=== PATIENT | male | born 1960 ===

== ENCOUNTER 2017-10-30 10:35 | Emergency (ER) | payer OTHER ==
[2017-10-30] MEDS ORDERED: EPINEPHrine HCL (1:10,000) 1 MG/10 ML SYRINGE IV ONE (10:36)
[2017-10-30] MEDS ORDERED: SODIUM BICARBONATE 8.4% INJ 50 MEQ/50 ML SYR IV ONE (10:36)
--- NOTE | 2017-10-30 11:07 | PD ---
HPI Chief Complaint: Code Blue Time Seen by Provider: 10:50 Travel History International Travel<30 days: No (Unknown) Contact w/Intl Traveler<30days: No (Unknown) Traveled to known affect area: No (Unknown) History of Present Illness HPI This is a 57-year-old male with a history of peripheral vascular disease, status post left lower extremity amputation within the last 2 weeks, who presents via EMS in cardiac arrest. According to the paramedics they got a call that the patient was unresponsive. When they arrived, they found the patient in agonal respirations. ACLS protocol was initiated. The patient had received 6 doses of intraosseous epinephrine and 2 A of sodium bicarb. The patient was in asystole and PEA. When patient arrived. He had no pulses. He was being bagged through the ET tube that was placed prior to arrival. The patient had PEA on the monitor. The patient had a large amount of frothy dark liquid in the ET tube. The patient was reintubated using the CMAC. [facility] Social History Tobacco Use: No (Unknown) Review of Systems ROS Limitations: Intubated (In cardiac arrest. Unable to obtain any review of systems) Physical Exam Narrative GENERAL: Well-developed well-nourished male who is being ventilated through the ET tube. Patient had CPR in progress. Patient was pale and cool to the touch. SKIN: Focused skin assessment warm/dry. HEAD: Atraumatic. Normocephalic. EYES: Pupils are fixed and dilated at 3 mm.. No scleral icterus. No injection or drainage. ENT: Frothy secretions in the oropharynx and ET tube. NECK: Trachea midline. No palpable carotid pulse. CARDIOVASCULAR: PEA noted on the monitor. No palpable pulse appreciated. RESPIRATORY: Coarse rhonchi bilaterally. Patient had frothy liquid coming from the ET tube. On reintubation, patient was easier to bag however still rhonchorous. GASTROINTESTINAL: Abdomen soft, non-tender, nondistended. Hepatic and splenic margins not palpable. MUSCULOSKELETAL: Status post left BKA. Cool and mottled extremities NEUROLOGICAL: Awake and alert 0. Patient in cardiac arrest. Data Data Last Documented VS Vital Signs Date Time Temp Pulse Resp B/P (MAP) Pulse Ox O2 Delivery O2 Flow Rate FiO2 10/30/17 10:50 15.00 100 Orders Orders Ed Discharge Order (10/30/17 11:07) MDM Medical Decision Making Medical Screen Exam Complete: Yes Emergency Medical Condition: Yes Differential Diagnosis Acute myocardial infarction versus pulmonary embolus versus aspiratory failure versus metabolic derangement. Narrative Course 57-year-old male presents in cardiopulmonary arrest. The patient was given 6 mg of epinephrine prior to arrival. The patient is also been given 2 A of bicarb. He was intubated in the field. The patient has the ET tube replaced. He continued in PEA. One further round of epinephrine was given. 3 minutes after circulation, a ultrasound machine was placed in the subxiphoid direction. No cardiac activity noted. Patient was pronounced at 10:45 AM. Procedures Procedure Narrative Patient reintubated emergently: INTUBATION: Using the CMAC. The patient was put in optimal position for the procedure. Using an 8.0 ET tube, tube was passed between the cords with visualization. Tube placement was confirmed by visualization of the tube and balloon passing through the cords. Breath sounds were equal and well aerated bilaterally postintubation. No breath sounds over stomach. Diagnosis Primary Impression: Acute cardiopulmonary arrest Additional Impressions: Recent left below the knee amputation Peripheral vascular disease Disposition: 20 Condition: Fito Murcia MD Oct 30, 2017 11:07
== END 2017-10-30 12:51 | disposition expired ==
LOC: NEPC 10:35
DX: I46.9 Cardiac arrest, cause unspecified (principal); I73.9 Peripheral vascular disease, unspecified; Z89.512 Acquired absence of left leg below knee
CPT/HCPCS: 31500; 92950; 99283; J0171